=== PATIENT | female | born 1955 | race Caucasian/White ===

== ENCOUNTER 2019-07-11 00:28 | Day surgery (SDC) | payer OTHER, SELFPAY ==
[2019-07-08 15:51] VITALS: BMI 28.6
[2019-07-11 06:43] VITALS: BP 176/82; PULSE 58; RESP 16; TEMP 36.2; O2SAT 99
[2019-07-11] MEDS: LACTATED RINGERS 1,000 ML 150 ML IV CONT (07:04)
--- NOTE | 2019-07-11 07:18 | P.PNAN_ITS ---
Anes - Initial Pre Proc Eval Procedure: Operation Date: 07/11/19 08:00 Proposed Procedures p Screening Colonoscopy - Rufus John MD Date/Time: 07/11/19 07:18 Surgeon: Rufus John MD Pre Op Diagnosis: Neoplasm Screening Patient Data Age: 63 Gender: F Height: 5 ft 5 in Weight: 77.2 kg Last Vital Signs Temp 36.2 C L 07/11/19 06:43 Pulse 58 L 07/11/19 06:43 Resp 16 07/11/19 06:43 BP 176/82 H 07/11/19 06:43 Pulse Ox 99 07/11/19 06:43 Allergies Allergy/AdvReac Type Severity Reaction Status Date / Time No Known Allergies Allergy Unknown Verified 07/11/19 07:05 Home Medications Medication Instructions Recorded Confirmed Type aspirin [Aspirin Low Dose] 81 mg PO DAILY 07/08/19 07/08/19 History calcium carbonate-vitamin D3 1 tablet PO DAILY 07/08/19 07/08/19 History [Os-Jv 500 + D3] carboxymethylcellulose-glycern 1 drp OPHTHALMIC (EYE) BID 07/08/19 07/08/19 History [Refresh Optive] cholecalciferol (vitamin D3) 2,000 unit PO DAILY 07/08/19 07/08/19 History [Vitamin D3] fluticasone propionate 50 mcg INTRANASAL DAILY 07/08/19 07/08/19 History hydrochlorothiazide 25 mg PO DAILY 07/08/19 07/08/19 History metoprolol succinate 100 mg PO DAILY 07/08/19 07/08/19 History jsgiuier-qdf-ucme-FA-lutein 1 tablet PO DAILY 07/08/19 07/08/19 History [Centrum Silver Women] pravastatin 40 mg PO DAILY 07/08/19 07/08/19 History Patient hx anesthesia problems: none Family hx anesthesia problems: none [facility] Past Medical History Medical History (Updated 07/11/19 @ 07:22 by Joel Holland MD) HTN (hypertension) Anes - Eval Final PreProcedure Day of Procedure 07/11/19 07:18 Patient weight: overweight Heart: regular rate and rhythm Lungs: clear to auscultation Airway: Mallampati scale class II Neurological: alert and oriented Last oral intake: >/= 8 hours ASA classification: II Emergent: no Anesthetic plan: proceed Anesthesia type and monitoring: general GIVS and standard monitoring Informed Consent: The patient's anesthetic plan and its attendant risks and benefits were discussed with the patient/family/POA. Questions were solicited and answers provided to the satisfaction of the patient/family/POA.
--- NOTE | 2019-07-11 07:51 | P.CONGI_ITS ---
Assessment and Plan Additional Plan This is a 63-year-old white female patient seen in evaluation at the request of Dr. Kumar Good. Patient presents for neoplasia screening. Patient states that her weight appetite bowel movements are normal. She denies any blood in her stools. Her bowel habits are regular. Her weight has remained stable. Last colonoscopy was 10 years ago. No polyps have been identified. Family history is noncontributory. Past medical history is significant for osteoporosis. Medications include vitamins and aspirin. Current medications include hydrochlorothiazide, metoprolol, pravastatin, fluticasone, aspirin, calcium, She has no stated drug allergies. Family history there is no family history of colon or rectal disease. Physical exam reveals her to be alert. Oriented x3. HEENT exam unremarkable. Lungs are clear to auscultation and percussion. Heart is without murmur or extra sounds. Abdominal exam bowel sounds are present soft nontender with no organomegaly. Digital external rectal exam is normal. Impression 1. Neoplasia screening. This is advised because of her age. Plan is for screening colonoscopy. This report follow separately. GI Consult Note Consult date/time: 07/11/19 07:51 HPI: Ibis Montes De Oca is a 63 year old female [facility] Past Medical History Medical History (Updated 07/11/19 @ 07:22 by Joel Holland MD) HTN (hypertension) Meds Home Medications and Allergies Home Medications Medication Instructions Recorded Confirmed Type aspirin [Aspirin Low Dose] 81 mg PO DAILY 07/08/19 07/08/19 History calcium carbonate-vitamin D3 1 tablet PO DAILY 07/08/19 07/08/19 History [Os-Jv 500 + D3] carboxymethylcellulose-glycern 1 drp OPHTHALMIC (EYE) BID 07/08/19 07/08/19 History [Refresh Optive] cholecalciferol (vitamin D3) 2,000 unit PO DAILY 07/08/19 07/08/19 History [Vitamin D3] fluticasone propionate 50 mcg INTRANASAL DAILY 07/08/19 07/08/19 History hydrochlorothiazide 25 mg PO DAILY 07/08/19 07/08/19 History metoprolol succinate 100 mg PO DAILY 07/08/19 07/08/19 History bsrjporu-sat-owwl-FA-lutein 1 tablet PO DAILY 07/08/19 07/08/19 History [Centrum Silver Women] pravastatin 40 mg PO DAILY 07/08/19 07/08/19 History Allergies Allergy/AdvReac Type Severity Reaction Status Date / Time No Known Allergies Allergy Unknown Verified 07/11/19 07:05 Vital Signs Vital Signs - 24 hr 07/11/19 06:43 Temperature 36.2 C L Pulse Rate 58 L Respiratory Rate 16 Blood Pressure 176/82 H Pulse Oximetry 99
[2019-07-11 08:24] VITALS: BP 142/79; PULSE 65; RESP 17; O2SAT 100
[2019-07-11 08:34] VITALS: BP 143/75; PULSE 60; RESP 17; O2SAT 99
[2019-07-11 08:44] VITALS: BP 143/75; PULSE 60; RESP 17; O2SAT 99
[2019-07-11 08:54] VITALS: BP 181/90; PULSE 62; RESP 18; O2SAT 99
== END 2019-07-11 09:02 | disposition home or self-care (01) ==
PROVIDERS: PCP Family Medicine; Visit Provider Internal Medicine Gastroenterology
PROC: 0DJD8ZZ Inspection of Lower Intestinal Tract, Via Natural or Artificial Opening Endoscopic (ICD-10-PCS; CPT 45378; principal; 2019-07-11 08:00)
DX: Z12.11 Encounter for screening for malignant neoplasm of colon (principal); K57.30 Diverticulosis of large intestine without perforation or abscess without bleeding; K64.8 Other hemorrhoids; I10 Essential (primary) hypertension; M81.0 Age-related osteoporosis without current pathological fracture; Z79.82 Long term (current) use of aspirin
CPT/HCPCS: 45378; J2704; J7120